=== PATIENT | male | born 1965 | race American Indian/Alaskan Native ===

== ENCOUNTER 2022-07-25 08:03 | Inpatient (IN) | payer MEDICARE ==
[2022-07-25 10:10] LABS: Basophils # (Auto) 0.1 K/mm3 (0.0-0.1); Basophils % (Auto) 0.8 % (0.0-1.8); Eosinophils # (Auto) 0.3 K/mm3 (0.0-0.4); Eosinophils % (Auto) 3.1 % (0.0-4.3); Hematocrit 40.4 % (35.5-45.6); Hemoglobin 13.9 gm/dl (11.8-15.2); Lymphocytes # (Auto) 3.5 K/mm3 (1.2-5.4); Lymphocytes % (Auto) 39.3 % (13.4-35.0); Mean Corpuscular HGB Conc 34 % (32-34); Mean Corpuscular Volume 90 fl (84-94); Monocytes # (Auto) 1.1 K/mm3 (0.0-0.8); Red Cell Distribution Width 15.2 % (13.2-15.2)
--- NOTE | 2022-07-25 10:16 | Cat Scan Report ---
CT head/brain wo con INDICATION / CLINICAL INFORMATION: 57 years Male; numbness. TECHNIQUE: Routine CT head without contrast. All CT scans at this location are performed using CT dos e reduction for ALARA by means of automated exposure control. COMPARISON: None. FINDINGS: BRAIN / INTRACRANIAL CONTENTS: The mild periventricular white matter changes indicative of mild micro vascular angiopathy. Is also mild cerebral atrophy. The ventricular system is correspondingly appropr iate in size and configuration. Findings are compatible with small focus of calcification within the left basal ganglia. There is no CT evidence of acute intracranial hemorrhage or significant mass effe ct. ORBITS: No significant abnormality of visualized orbits. SINUSES / MASTOIDS: There is minimal mucosal thickening within the visualized paranasal sinuses. CRANIOCERVICAL JUNCTION: No significant abnormality. ADDITIONAL FINDINGS: None. IMPRESSION: 1. There is no CT evidence of acute intracranial process. Signer Name: Guy Nix MD Signed: 07/25/2022 10:12 AM Workstation Name: [id number]
[2022-07-25 10:17] LABS: INR 0.82 (0.87-1.13)
[2022-07-25 10:18] LABS: Partial Thromboplastin Time 30.4 Sec. (24.2-36.6); Platelet Count 250 K/mm3 (140-440)
[2022-07-25 10:24] LABS: Alanine Aminotransferase 56 units/L (7-56); Albumin 4.3 g/dL (3.9-5); BUN/Creatinine Ratio 13; Blood Urea Nitrogen 12 mg/dL (9-20); Calcium 9.5 mg/dL (8.4-10.2); Hemolysis Index 85
[2022-07-25] MEDS ORDERED: LORazepam 2 MG/ML VIAL ONE (11:08)
--- NOTE | 2022-07-25 12:26 | Emergency Department Report ---
ED Neuro Deficit HPI - General Chief Complaint: Pain General Stated Complaint: POSSIBLE STROKE ON 07/24, RT SIDE NUMBNESS Time Seen by Provider: 07/25/22 11:15 Source: patient Mode of arrival: Ambulatory Limitations: No Limitations - History of Present Illness Initial Comments: 57 yo M with h/o HTn who now present with right sided facial and both upper and lower limb numbness and tingling that he woke up to yesterday continued until present. 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 No fever or chills. No fall or trauma to the brain reported. He also denies any other modifying or associated factors. - Related Data Home Medications: Previous Rx's Medication Instructions Recorded Last Taken Type Albuterol Mdi (or & Nicu Only) 1 puff IH Q4-6H PRN #1 inha 07/22/13 Unknown Rx [ProAir HFA Inhaler] Hydrocortisone 2.5% [Hytone 2.5% 1 applicatio TP BID #1 tube 07/22/13 Unknown Rx CREAM] Prednisone 3 tab PO QDAY #15 tablet 07/22/13 Unknown Rx Allergies/Adverse Reactions: Allergies Allergy/AdvReac Type Severity Reaction Status Date / Time No Known Allergies Allergy Unverified 07/25/22 09:17 ED Review of Systems ROS: Stated complaint: POSSIBLE STROKE ON 07/24, RT SIDE NUMBNESS Other details as noted in HPI Comment: All other systems reviewed and negative Neurological: numbness (right facial and sided numbness with tingling ), paresthesias. denies: headache, weakness ED Past Medical Hx - Past Medical History Hx Asthma: Yes (ran out of albuterol) - Surgical History Hx Appendectomy: Yes Additional Surgical History: back surgery, R hand surgery, tonsillectomy, appendectomy, circumcision - Social History Smoking Status: Unknown if ever smoked - Medications Home Medications: Home Medications Medication Instructions Recorded Confirmed Last Taken Type Albuterol Mdi (or & Nicu Only) 1 puff IH Q4-6H PRN #1 inha 07/22/13 Unknown Rx [ProAir HFA Inhaler] Hydrocortisone 2.5% [Hytone 2.5% 1 applicatio TP BID #1 tube 07/22/13 Unknown Rx CREAM] Prednisone 3 tab PO QDAY #15 tablet 07/22/13 Unknown Rx ED Neuro Physical Exam - General Limitations: No Limitations General appearance: alert, in no apparent distress Suspected Stroke: Yes - Head Head exam: Present: atraumatic, normal inspection - Eye Eye exam: Present: normal appearance Pupils: Present: normal accommodation - ENT ENT exam: Present: normal exam, normal orophraynx, mucous membranes dry - Neck Neck exam: Present: normal inspection, full ROM. Absent: tenderness - Respiratory Respiratory exam: Present: normal lung sounds bilaterally. Absent: respiratory distress, accessory muscle use - Cardiovascular Cardiovascular Exam: Present: regular rate, normal rhythm, normal heart sounds - GI/Abdominal GI/Abdominal exam: Present: soft, normal bowel sounds. Absent: distended, tenderness - Extremities Exam Extremities exam: Present: normal inspection, normal capillary refill. Absent: tenderness, pedal edema - Back Exam Back exam: Absent: tenderness - Neurological Exam Neurological exam: Present: alert - NIHSS Assessment Interval: Baseline 1a. Level of Consciousness: alert/keenly responsive 1b. LOC Questions: answers both correctly 1c. LOC Commands: performs tasks correctly 2. Best Gaze: normal 3. Visual: no visual loss 4. Facial Palsy: normal symmetrical movement 5b. Motor Arm Right: no drift 5a. Motor Arm Left: no drift 6a. Motor Leg Left: no drift 6b. Motor Leg Right: no drift 7. Limb Ataxia: absent 8. Sensory: normal 9. Best Language: no aphasia 10. Dysarthria: normal 11. Extinction/Inattention: no abnormality Total Score: 0 Stroke Severity: No Stroke Symptoms - Psychiatric Psychiatric exam: Present: normal affect, normal mood - Skin Skin exam: Present: warm, normal color ED Course Vital Signs 07/25/22 07/25/22 09:15 11:36 Temperature 98.4 F Pulse Rate 87 Respiratory 18 Rate Blood Pressure 114/67 [Left] O2 Sat by Pulse 99 99 Oximetry - Consultations Consultation #1: 07/25/22 13:29 Since will do not have neurologist service today I called and consult with Dr Mendez at [facility] who agreed for this patient to have a complete neurology stroke workup-- Dr Darden our hospitalist consulted who accept pt for further evaluation and treatment Consultation #2: 07/25/22 13:31 Dr Darden our hospitalist consulted who accept pt for further evaluation and treatment - Lab Data Result diagrams: 07/25/22 09:36 07/25/22 09:36 Lab Results 09/07/25/22 07/25/22 Range/Units 09:36 09:36 09:36 WBC 8.9 (4.5-11.0) K/mm3 RBC 4.50 (3.65-5.03) M/mm3 Hgb 13.9 (11.8-15.2) gm/dl Hct 40.4 (35.5-45.6) % MCV 90 (84-94) fl MCH 31 (28-32) pg MCHC 34 (32-34) % RDW 15.2 (13.2-15.2) % Plt Count 250 (140-440) K/mm3 Lymph % (Auto) 39.3 H (13.4-35.0) % Nye % (Auto) 12.0 H (0.0-7.3) % Eos % (Auto) 3.1 (0.0-4.3) % Baso % (Auto) 0.8 (0.0-1.8) % Lymph # (Auto) 3.5 (1.2-5.4) K/mm3 Nye # (Auto) 1.1 H (0.0-0.8) K/mm3 Eos # (Auto) 0.3 (0.0-0.4) K/mm3 Baso # (Auto) 0.1 (0.0-0.1) K/mm3 Seg Neutrophils % 44.8 (40.0-70.0) % Seg Neutrophils # 4.0 (1.8-7.7) K/mm3 PT 12.2 (12.2-14.9) Sec. INR 0.82 L (0.87-1.13) APTT 30.4 (24.2-36.6) Sec. Sodium 125 L (137-145) mmol/L Potassium 4.7 (3.6-5.0) mmol/L Chloride 93.2 L (98-107) mmol/L Carbon Dioxide 13 L (22-30) mmol/L Anion Gap 24 mmol/L BUN 12 (9-20) mg/dL Creatinine 0.9 (0.8-1.3) mg/dL Estimated GFR > 60 ml/min BUN/Creatinine Ratio 13 % Glucose 97 (75-100) mg/dL Calcium 9.5 (8.4-10.2) mg/dL Total Bilirubin 0.30 (0.1-1.2) mg/dL AST 62 H (5-40) units/L ALT 56 (7-56) units/L Alkaline Phosphatase 104 (35-129) units/L Troponin T (0.00-0.029) ng/mL Total Protein 6.6 (6.3-8.2) g/dL Albumin 4.3 (3.9-5) g/dL Albumin/Globulin Ratio 1.9 % 07/25/22 Range/Units 09:52 WBC (4.5-11.0) K/mm3 RBC (3.65-5.03) M/mm3 Hgb (11.8-15.2) gm/dl Hct (35.5-45.6) % MCV (84-94) fl MCH (28-32) pg MCHC (32-34) % RDW (13.2-15.2) % Plt Count (140-440) K/mm3 Lymph % (Auto) (13.4-35.0) % Nye % (Auto) (0.0-7.3) % Eos % (Auto) (0.0-4.3) % Baso % (Auto) (0.0-1.8) % Lymph # (Auto) (1.2-5.4) K/mm3 Nye # (Auto) (0.0-0.8) K/mm3 Eos # (Auto) (0.0-0.4) K/mm3 Baso # (Auto) (0.0-0.1) K/mm3 Seg Neutrophils % (40.0-70.0) % Seg Neutrophils # (1.8-7.7) K/mm3 PT (12.2-14.9) Sec. INR (0.87-1.13) APTT (24.2-36.6) Sec. Sodium (137-145) mmol/L Potassium (3.6-5.0) mmol/L Chloride (98-107) mmol/L Carbon Dioxide (22-30) mmol/L Anion Gap mmol/L BUN (9-20) mg/dL Creatinine (0.8-1.3) mg/dL Estimated GFR ml/min BUN/Creatinine Ratio % Glucose (75-100) mg/dL Calcium (8.4-10.2) mg/dL Total Bilirubin (0.1-1.2) mg/dL AST (5-40) units/L ALT (7-56) units/L Alkaline Phosphatase (35-129) units/L Troponin T < 0.010 (0.00-0.029) ng/mL Total Protein (6.3-8.2) g/dL Albumin (3.9-5) g/dL Albumin/Globulin Ratio % - EKG Data -: EKG Interpreted by Ga EKG shows normal: sinus rhythm Rate: normal 07/25/22 12:29 Noted with normal sinus rhythm at a rate of 83 bpm, no ST elevation or depression noted in this normal ECG. - Radiology Data FINDINGS: BRAIN / INTRACRANIAL CONTENTS: The mild periventricular white matter changes indicative of mild microvascular angiopathy. Is also mild cerebral atrophy. The ventricular system is correspondingly appropriate in size and configuration. Findings are compatible with small focus of calcification within the left basal ganglia. There is no CT evidence of acute intracranial hemorrhage or significant mass effect. ORBITS: No significant abnormality of visualized orbits. SINUSES / MASTOIDS: There is minimal mucosal thickening within the visualized paranasal sinuses. CRANIOCERVICAL JUNCTION: No significant abnormality. ADDITIONAL FINDINGS: None. IMPRESSION: 1. There is no CT evidence of acute intracranial process. - Medical Decision Making here with right sided facial and both upper and lower limb numbness and tingling sensation for the last 24 hours-- differential could include TIA, CVA or any systemic or electrolytes abnormality-- will go ahead and order routine CBC, CMP, UA, UDS and CT head with neurology consult-- CT head resulted to be without acute intracranial abnormality -- labs however noted with Na+ 125 mg/dl which could be responsible for the muscle cramps-- no EKG changes noted-- Critical care attestation.: If time is entered above; I have spent that time in minutes in the direct care of this critically ill patient, excluding procedure time. ED Disposition Clinical Impression: Numbness and tingling of right side of face, Right sided numbness, TIA (transient ischemic attack), Hyponatremia Disposition: ADMITTED INPATIENT Is pt being admited?: Yes Does the pt Need Aspirin: No Condition: Stable Referrals: ALEJANDRO ALFORD MD [Primary Care Provider] - 3-5 Days
--- NOTE | 2022-07-25 13:29 | History and Physical Report ---
History of Present Illness Chief complaint: I feel weak, right side History of present illness: 57 YO Male with HTN, Mild Intermittent Asthma presents to ED for evaluation. Patient reports "I feel weak on my right side". Patient states that he was in his usual state of health and awoke from sleep yesterday and was found to have right-sided weakness as well as slurred speech. Patient states his symptoms did not resolve in the ensuing 24 hours. Patient is becoming concerned. Patient transported to [facility] via private vehicle for further care and evaluation of the aforementioned symptoms. The patient was seen and evaluated in the emergency department. All lab and imaging studies reviewed. Patient found to have a focal neurologic deficit and a code stroke was called. Patient admitted to medical floor due to increased risk of worsening symptoms and for medical stabilization. Patient initiated on CVA protocol. Teleneurology consulted. Patient denies fever, chills, chest pain, palpitation, adductive cough, trauma, skin rash, recent contact, unilateral leg swelling, calf pain, individual/family history of DVT/PE/bleeding/blood clotting disorders, known exposure to COVID-19. No prior admission for review. All medication listed at time of admission has been reconciled. Advanced care planning conducted in E. Past History Past Surgical History: appendectomy, tonsillectomy, Other (back surgery, R hand surgery, tonsillectomy, appendectomy, circumcision) Social history: . denies: smoking, alcohol abuse, prescription drug a buse Family history: diabetes, hypertension Medications and Allergies Allergies Allergy/AdvReac Type Severity Reaction Status Date / Time No Known Allergies Allergy Unverified 07/25/22 09:17 Home Medications Medication Instructions Recorded Confirmed Last Taken Type Albuterol Mdi (or & Nicu Only) 1 puff IH Q4-6H PRN #1 inha 07/22/13 Unknown Rx [ProAir HFA Inhaler] Hydrocortisone 2.5% [Hytone 2.5% 1 applicatio TP BID #1 tube 07/22/13 Unknown Rx CREAM] Prednisone 3 tab PO QDAY #15 tablet 07/22/13 Unknown Rx Review of Systems Constitutional: no weight loss, no weight gain, no fever, no chills Ears, nose, mouth and throat: no ear pain, no tinnitis, no decreased hearing, no nose pain, no sinus pressure Cardiovascular: no chest pain, no palpitations, no rapid/irregular heart beat, no edema, no lightheadedness Respiratory: no cough, no cough with sputum, no excessive sputum, no hemoptysis Gastrointestinal: no abdominal pain, no nausea, no diarrhea, no constipation, no hematemesis Genitourinary Male: no hematuria, no flank pain, no discharge, no urinary frequency, no urinary hesitancy Rectal: no pain, no incontinence, no bleeding Musculoskeletal: no neck stiffness, no arm numbness/tingling Integumentary: no rash, no pruritis, no sores, no jaundice, no boils Neurological: weakness, change in speech, gait dysfunction, motor disturbance, no head injury, no numbness, no tingling Psychiatric: no anxiety, no memory loss, no insomnia, no hypersomnia, no change in libido Endocrine: no cold intolerance, no heat intolerance, no polyphagia, no polydipsia, no polyuria, no nocturia Hematologic/Lymphatic: no easy bruising, no easy bleeding, no lymphedema Allergic/Immunologic: no urticaria, no persistent infections, no anaphylaxis Exam - Constitutional Vitals: Temp Pulse Resp BP Pulse Ox 98.4 F 87 18 114/67 99 07/25/22 09:15 07/25/22 09:15 07/25/22 09:15 07/25/22 09:15 07/25/22 11:36 General appearance: Present: mild distress - EENT Eyes: Present: PERRL ENT: hearing intact, clear oral mucosa - Neck Neck: Present: supple, normal ROM - Respiratory Respiratory effort: normal Respiratory: bilateral: CTA - Cardiovascular Heart Sounds: Present: S1 & S2. Absent: rub, click - Extremities Extremities: pulses symmetrical, No edema Peripheral Pulses: within normal limits - Abdominal General gastrointestinal: Present: soft, non-tender, non-distended, normal bowel sounds Male genitourinary: Present: normal - Integumentary Integumentary: Present: clear, warm, dry - Musculoskeletal Musculoskeletal: gait normal, strength equal bilaterally - Psychiatric Psychiatric: appropriate mood/affect, intact judgment & insight - Neurologic Neurologic: CNII-XII intact, moves all extremities HEART Score - HEART Score Troponin: Troponin T < 0.010 ng/mL (0.00-0.029) 07/25/22 09:52 Results - Labs CBC & Chem 7: 07/25/22 09:36 07/25/22 09:36 Labs: Abnormal lab results 07/25/22 07/25/22 07/25/22 Range/Units 09:36 09:36 09:36 Lymph % (Auto) 39.3 H (13.4-35.0) % Eagle % (Auto) 12.0 H (0.0-7.3) % Eagle # (Auto) 1.1 H (0.0-0.8) K/mm3 INR 0.82 L (0.87-1.13) Sodium 125 L (137-145) mmol/L Chloride 93.2 L (98-107) mmol/L Carbon Dioxide 13 L (22-30) mmol/L AST 62 H (5-40) units/L Assessment and Plan - Patient Problems (1) CVA (cerebral vascular accident) Current Visit: Yes Status: Acute Plan to address problem: CVA protocol: CT scan head, neuro check, seizure precautions, physical therapy consulted, Occupational Therapy consulted, speech therapy consulted, lipid panel, statin therapy, antiplatelet therapy, telemetry neurology consulted. Echocardiogram, carotid Doppler. (2) Right hemiparesis Current Visit: Yes Status: Acute Plan to address problem: Physical therapy consulted, supportive care. (3) Metabolic acidosis Current Visit: Yes Status: Acute Plan to address problem: IV fluid resuscitation therapy, BMP, repeat BMP in a.m. (4) DVT prophylaxis Current Visit: Yes Status: Acute (5) Hyponatremia Current Visit: Yes Status: Acute Plan to address problem: BMP, IV fluid resuscitation therapy, repeat BMP in AM. (6) Advance care planning Current Visit: Yes Status: Acute Plan to address problem: Disease education data, care plan discussed, diagnoses discussed, prognosis discussed, patient is full code. Patient acknowledges understanding and agreement with care plan, +30 minutes. (7) Preventative health care Current Visit: Yes Status: Acute Plan to address problem: Patient counseled regarding risk factor reduction, outpatient follow-up with primary care physician for all age and risk factor appropriate screening test. +30 minutes.
--- NOTE | 2022-07-25 13:29 | Electrocardiograph Report ---
[facility] Test Date: 2022-07-25 Test Time: 09:22:11 Pat Name: TANYA DELVALLE Department: Room: Gender: M Office Technician: 0000 : 1965 Requested By: AMBROCIO NINA Order Number: [id number] Reading MD: Brandon Smyth Measurements Intervals Protection Rate: 83 P: 70 SC: 132 QRS: 57 QRSD: 79 T: 24 QT: 346 QTc: 407 Interpretive Statements Sinus rhythm No previous ECG available for comparison Electronically Signed On 07-25-2022 13:29:09 EDT by Brandon Smyth
[2022-07-25] MEDS ORDERED: SODIUM CHLORIDE 0.9% 1000 ML 1,000 ML IV ONE (13:34)
--- NOTE | 2022-07-25 13:57 | Consultation ---
History of Present Illness - Reason for Consult Consult date: 07/25/22 - History of Present Illness [place] [facility] Consult Note # Demographics Consult Type: General Neurology Patient Location: Emergency Room First Name: Kevin Last Name: Yogi Date of : 1965 Age: 57 Gender: Male Facility: Time of Initial Page (Eastern Time): 07/25/2022, 12:26 Time of Return Call (Eastern Time): 07/25/2022, 12:27 # HPI History: 55yo man who had right sided numbness and tingling Last Known Normal: yesterday at 8AM # Assessment Impression: Ischemic Stroke (Acute) # Plan Thrombolytic/Intervention: NOT IV Thrombolysis or IA Intervention candidate Thrombolytic Exclusion: > 4.5 hours Intraarterial Exclusion: clinically consistent with small vessel disease Target Blood Pressure: SBP < 220 Labs: lipid panel Imaging: (urgency: routine): CT Angiogram Head and CT Angiogram Neck MRI Brain without contrast Diagnostic Test: echo without bubble study Therapy/Evaluation: NPO until swallow evaluation PT/OT evaluation speech/swallow consultation Medication: aspirin 81 mg daily DVT Prophylaxis: SCD chemical DVT prophylaxis Other: LDL < 70 If patient has any neurological deterioration please call me back immediately permissive hypertension telemetry monitoring I have discussed my recommendations with the referring provider Disposition: admit # Demographics First Name: Kevin Last Name: Yogi Facility: Medications and Allergies Allergies Allergy/AdvReac Type Severity Reaction Status Date / Time No Known Allergies Allergy Unverified 07/25/22 09:17 Home Medications Medication Instructions Recorded Confirmed Last Taken Type Albuterol Mdi (or & Nicu Only) 1 puff IH Q4-6H PRN #1 inha 07/22/13 Unknown Rx [ProAir HFA Inhaler] Hydrocortisone 2.5% [Hytone 2.5% 1 applicatio TP BID #1 tube 07/22/13 Unknown Rx CREAM] Prednisone 3 tab PO QDAY #15 tablet 07/22/13 Unknown Rx Active Meds: Active Medications Acetaminophen (Acetaminophen 325 Mg Tab) 650 mg PO Q4H PRN PRN Reason: Pain, Mild (1-3) Aspirin (Aspirin 325 Mg Tab) 325 mg PO QDAY BARB Atorvastatin Calcium (Atorvastatin 40 Mg Tab) 40 mg PO QHS BARB Bisacodyl (Bisacodyl 10 Mg Rect Supp) 10 mg NE QDAY PRN PRN Reason: Constipation Hydromorphone HCl (Hydromorphone 0.5 Mg/0.5 Ml Inj) 0.5 mg IV Q23H PRN PRN Reason: Pain , Severe (7-10) Sodium Chloride (Nacl 0.9% 1000 Ml) 1,000 mls @ 999 mls/hr IV BOLUS ONE Stop: 07/25/22 14:34 Potassium Chloride/Sodium Chloride (Ns/Kcl 20meq) 1,000 mls @ 42 mls/hr IV DIRECT BARB Magnesium Hydroxide (Magnesium Hydroxide (Mom) Oral Liqd Udc) 30 ml PO Q4H PRN PRN Reason: Constipation Metoclopramide HCl (Metoclopramide 10 Mg Tab) 10 mg PO Q6H PRN PRN Reason: Nausea And Vomiting Ondansetron HCl (Ondansetron 4 Mg/2 Ml Inj) 4 mg IV Q8H PRN PRN Reason: Nausea And Vomiting Oxycodone/Acetaminophen (Oxycodone /Acetaminophen 5-325mg Tab) 1 tab PO Q16H PRN PRN Reason: Pain, Moderate (4-6) Promethazine HCl (Promethazine 25 Mg Rect Supp) 25 mg NE Q6H PRN PRN Reason: Nausea And Vomiting Sodium Chloride (Sodium Chloride 0.9% 10 Ml Flush Syringe) 10 ml INJ PRN PRN PRN Reason: LINE FLUSH Exam - Constitutional Vitals: Temp Pulse Resp BP Pulse Ox 98.4 F 87 18 114/67 99 07/25/22 09:15 07/25/22 09:15 07/25/22 09:15 07/25/22 09:15 07/25/22 11:36 Results - Labs CBC & Chem 7: 07/25/22 09:36 07/25/22 09:36 Labs: Abnormal lab results 07/25/22 07/25/22 07/25/22 Range/Units 09:36 09:36 09:36 Lymph % (Auto) 39.3 H (13.4-35.0) % Dare % (Auto) 12.0 H (0.0-7.3) % Dare # (Auto) 1.1 H (0.0-0.8) K/mm3 INR 0.82 L (0.87-1.13) Sodium 125 L (137-145) mmol/L Chloride 93.2 L (98-107) mmol/L Carbon Dioxide 13 L (22-30) mmol/L AST 62 H (5-40) units/L
[2022-07-25] MEDS ORDERED: HYDROmorphone 0.5 MG/0.5 ML INJ IV PRN (14:00)
[2022-07-25] MEDS ORDERED: ONDANSETRON 4 MG/2 ML INJ IV PRN (14:00)
[2022-07-25] MEDS ORDERED: METOCLOPRAMIDE 10 MG TAB PO PRN (14:00)
[2022-07-25] MEDS ORDERED: MAGNESIUM HYDROXIDE (MOM) ORAL LIQD UDC PO PRN (14:00)
[2022-07-25] MEDS ORDERED: ACETAMINOPHEN 325 MG TAB PO PRN (14:00)
[2022-07-25] MEDS ORDERED: oxyCODONE /ACETAMINOPHEN 5-325MG TAB PO PRN (14:30)
[2022-07-25] MEDS ORDERED: PROMETHAZINE 25 MG RECT SUPP PR PRN (14:30)
[2022-07-25] MEDS ORDERED: NACL 0.9%/KCL 20 MEQ 20 MEQ/1,000 ML BAG IV SCH (15:00)
--- NOTE | 2022-07-25 16:13 | Vascular Lab Report ---
DUPLEX DOPPLER ULTRASOUND CAROTID, BILATERAL INDICATION / CLINICAL INFORMATION: stroke. COMPARISON: None available. FINDINGS: RIGHT CAROTID: Mild atherosclerotic plaque. - PLAQUE ESTIMATE (%): < 50% - CCA velocity: 85 cm/sec. - ICA peak systolic velocity: 119 cm/sec. - ICA/CCA PSV Ratio: Less than 2. Right Vertebral Artery: Antegrade flow. LEFT CAROTID: Mild atherosclerotic plaque. - PLAQUE ESTIMATE (%): < 50% - CCA velocity: 102 cm/sec. - ICA peak systolic velocity: 96 cm/sec. - ICA/CCA PSV Ratio: Less than 2. Left Vertebral Artery: Antegrade flow. IMPRESSION: 1. Right Internal Carotid Artery: Less than 50% diameter stenosis. 2. Left Internal Carotid Artery: Less than 50% diameter stenosis. Velocity criteria are extrapolated from diameter data as defined by the Society of Radiologists in Ul trasound Consensus Conference, Radiology 2003; 229;340-346. NO STENOSIS (NORMAL) - Plaque = none; ICA PSV < 125 cm/sec; ICA/CCA PSV Ratio < 2.0 <50% STENOSIS - Plaque < 50%; ICA PSV < 125 cm/sec; ICA/CCA PSV Ratio < 2.0 50-69% STENOSIS - Plaque > 50%; ICA PSV = 125-230 cm/sec; ICA/CCA PSV Ratio = 2.0-4.0 >70% BUT <100% STENOSIS - Plaque > 50%; ICA PSV > 230 cm/sec; ICA/CCA PSV Ratio > 4.0 NEAR OCCLUSION - Plaque = visible lumen; ICA PSV = high/low/none; ICA/CCA PSV Ratio = variable TOTAL OCCLUSION - Plaque = no lumen; ICA PSV = none; ICA/CCA PSV Ratio = N/A Scribed by: Dawna Hendrickson RDMS, RVT, RMSKS Scribed: 07/25/2022 2:00 PM I have reviewed the images, agree with this report, and edited this report as needed. Signer Name: Leroy Cervantes MD Signed: 07/25/2022 4:09 PM Workstation Name: [id number]
--- NOTE | 2022-07-26 09:16 | Progress Note ---
Assessment and Plan Assessment and plan: #CVA (cerebral vascular accident) vs TIA rule out #Right hemiparesis -CT head negative for acute findings, carotid Doppler less than 50% stenosis bilaterally, TTE shows diastolic dysfunction and no PFO -CT angio of head and neck and MRI without contrast pending -Lipid panel, A1c pending -Continue statin and aspirin -Teleneurology evaluated patient, report reviewed -PT/OT consulted, recommendations pending #Hypertension -takes lisinopril 20mg qday -will hold due to recommendation of permissive hypertension per Neurology -okay for SBP <200 #Metabolic acidosis #Hyponatremia -repeat BMP pending after fluid resuscitation #Tobacco dependence #Smoking cessation counseling -Patient smokes 1 pack/day; agreeable to nicotine patch -21 mg nicotine patch daily -Smoking cessation counseling, supportive care, behavior change counseling, +15 minutes. #Advanced care planning -Disease education data, care plan discussed, diagnoses discussed, prognosis discussed, patient is full code. Patient acknowledges understanding and agreement with care plan, +30 minutes. History Interval history: No acute events overnight. Patient reports continued numbness in his right upper extremity. He does have history of tobacco abuse and hypertension. We discussed findings of CT of the head and carotid Doppler. Updated on current care plan patient agreeable. Hospitalist Physical - Physical exam Narrative exam: GENERAL: Well-developed well-nourished. In no acute distress. HEENT: Normocephalic. Atraumatic. NECK: Supple. CHEST/LUNGS: CTAB on room air HEART/CARDIOVASCULAR: RRR. No murmur, rubs or gallops appreciated. ABDOMEN: +BS. NT/ND. SKIN: No rashes noted. NEURO: No focal motor deficit. Follows all commands and is ambulatory. R sided numbness in upper and lower extremities. ROM and strength WNL. MUSCULOSKELETAL: No joint effusion EXTREMITIES: No cyanosis, clubbing or edema. PSYCH: Cooperative. - Constitutional Vitals: Temp Pulse Resp BP Pulse Ox 99.0 F 77 18 137/61 96 07/26/22 04:30 07/26/22 04:30 07/26/22 04:30 07/26/22 04:30 07/26/22 09:02 HEART Score - HEART Score Troponin: Troponin T < 0.010 ng/mL (0.00-0.029) 07/25/22 09:52 Results - Labs CBC & Chem 7: 07/25/22 09:36 07/25/22 09:36 Labs: Laboratory Last Values WBC 8.9 K/mm3 (4.5-11.0) 07/25/22 09:36 RBC 4.50 M/mm3 (3.65-5.03) 07/25/22 09:36 Hgb 13.9 gm/dl (11.8-15.2) 07/25/22 09:36 Hct 40.4 % (35.5-45.6) 07/25/22 09:36 MCV 90 fl (84-94) 07/25/22 09:36 MCH 31 pg (28-32) 07/25/22 09:36 MCHC 34 % (32-34) 07/25/22 09:36 RDW 15.2 % (13.2-15.2) 07/25/22 09:36 Plt Count 250 K/mm3 (140-440) 07/25/22 09:36 Lymph % (Auto) 39.3 % (13.4-35.0) H 07/25/22 09:36 [place] % (Auto) 12.0 % (0.0-7.3) H 07/25/22 09:36 Eos % (Auto) 3.1 % (0.0-4.3) 07/25/22 09:36 Baso % (Auto) 0.8 % (0.0-1.8) 07/25/22 09:36 Lymph # (Auto) 3.5 K/mm3 (1.2-5.4) 07/25/22 09:36 [place] # (Auto) 1.1 K/mm3 (0.0-0.8) H 07/25/22 09:36 Eos # (Auto) 0.3 K/mm3 (0.0-0.4) 07/25/22 09:36 Baso # (Auto) 0.1 K/mm3 (0.0-0.1) 07/25/22 09:36 Seg Neutrophils % 44.8 % (40.0-70.0) 07/25/22 09:36 Seg Neutrophils # 4.0 K/mm3 (1.8-7.7) 07/25/22 09:36 PT 12.2 Sec. (12.2-14.9) 07/25/22 09:36 INR 0.82 (0.87-1.13) L 07/25/22 09:36 APTT 30.4 Sec. (24.2-36.6) 07/25/22 09:36 Sodium 125 mmol/L (137-145) L 07/25/22 09:36 Potassium 4.7 mmol/L (3.6-5.0) 07/25/22 09:36 Chloride 93.2 mmol/L (98-107) L 07/25/22 09:36 Carbon Dioxide 13 mmol/L (22-30) L 07/25/22 09:36 Anion Gap 24 mmol/L 07/25/22 09:36 BUN 12 mg/dL (9-20) 07/25/22 09:36 Creatinine 0.9 mg/dL (0.8-1.3) 07/25/22 09:36 Estimated GFR > 60 ml/min 07/25/22 09:36 BUN/Creatinine Ratio 13 % 07/25/22 09:36 Glucose 97 mg/dL (75-100) 07/25/22 09:36 Calcium 9.5 mg/dL (8.4-10.2) 07/25/22 09:36 Total Bilirubin 0.30 mg/dL (0.1-1.2) 07/25/22 09:36 AST 62 units/L (5-40) H 07/25/22 09:36 ALT 56 units/L (7-56) 07/25/22 09:36 Alkaline Phosphatase 104 units/L (35-129) 07/25/22 09:36 Troponin T < 0.010 ng/mL (0.00-0.029) 07/25/22 09:52 Total Protein 6.6 g/dL (6.3-8.2) 07/25/22 09:36 Albumin 4.3 g/dL (3.9-5) 07/25/22 09:36 Albumin/Globulin Ratio 1.9 % 07/25/22 09:36 Leger/IV: Voiding Method Toilet Active Medications - Current Medications Current Medications: Generic Name Dose Route Start Last Admin Trade Name Freq PRN Reason Stop Dose Admin Acetaminophen 650 mg 07/25/22 14:00 Acetaminophen 325 Mg Tab PO Q4H PRN Pain, Mild (1-3) Aspirin 325 mg 07/26/22 10:00 Aspirin 325 Mg Tab PO QDAY BARB Atorvastatin Calcium 40 mg 07/25/22 22:00 07/25/22 22:16 Atorvastatin 40 Mg Tab PO 40 mg QHS BARB Administration Bisacodyl 10 mg 07/25/22 14:00 Bisacodyl 10 Mg Rect Supp [place] QDAY PRN Constipation Hydromorphone HCl 0.5 mg 07/25/22 14:00 Hydromorphone 0.5 Mg/0.5 Ml Inj IV Q23H PRN Pain , Severe (7-10) Potassium Chloride/Sodium Chloride 20 meq in 1,000 mls @ 42 mls/hr 07/25/22 15:00 07/26/22 06:08 Ns/Kcl 20meq IV 42 mls/hr DIRECT BARB Administration Magnesium Hydroxide 30 ml 07/25/22 14:00 Magnesium Hydroxide (Mom) Oral Liqd Udc PO Q4H PRN Constipation Metoclopramide HCl 10 mg 07/25/22 14:00 Metoclopramide 10 Mg Tab PO Q6H PRN Nausea And Vomiting Ondansetron HCl 4 mg 07/25/22 14:00 Ondansetron 4 Mg/2 Ml Inj IV Q8H PRN Nausea And Vomiting Oxycodone/Acetaminophen 1 tab 07/25/22 14:30 Oxycodone /Acetaminophen 5-325mg Tab PO Q16H PRN Pain, Moderate (4-6) Promethazine HCl 25 mg 07/25/22 14:30 Promethazine 25 Mg Rect Supp [place] Q6H PRN Nausea And Vomiting Sodium Chloride 10 ml 07/25/22 14:30 Sodium Chloride 0.9% 10 Ml Flush Syringe IV PRN PRN LINE FLUSH
[2022-07-26] MEDS: ASPIRIN 325 MG TAB PO SCH (11:52)
[2022-07-26 12:26] LABS: Chol/HDL Ratio 2.23 %
[2022-07-26] MEDS: NICOTINE 21 MG/24 HR PATCH TD SCH (13:51)
[2022-07-27 07:54] LABS: Blood Urea Nitrogen 14 mg/dL (9-20); Calcium 10.2 mg/dL (8.4-10.2); Hemolysis Index 16
[2022-07-27 08:00] LABS: BUN/Creatinine Ratio 20
--- NOTE | 2022-07-27 09:14 | Progress Note ---
Assessment and Plan Assessment and plan: #CVA (cerebral vascular accident) vs TIA rule out #Right hemiparesis-improving -CT head negative for acute findings, carotid Doppler less than 50% stenosis bilaterally, TTE shows diastolic dysfunction and no PFO -CT angio of head and neck shows atherosclerosis. MRI without contrast pending -Lipid panel WNL, A1c pending -Continue statin and aspirin -Teleneurology evaluated patient, report reviewed -PT/OT consulted, recommendations pending #Hypertension -takes lisinopril 20mg qday -will hold due to recommendation of permissive hypertension per Neurology -okay for SBP <200 #Metabolic acidosis-resolved #Hyponatremia-resolved #Tobacco dependence #Smoking cessation counseling -Patient smokes 1 pack/day; agreeable to nicotine patch -continue 21 mg nicotine patch daily; will prescribe chantix at discharge -Smoking cessation counseling, supportive care, behavior change counseling, +15 minutes. #Advanced care planning -Disease education data, care plan discussed, diagnoses discussed, prognosis discussed, patient is full code. Patient acknowledges understanding and agreement with care plan, +30 minutes. History Interval history: No acute events overnight. Patient reports improvement of R lower facial numbness. He continues to have numbness in the upper and lower extremities of the same side. He is motivated to quit smoking after discharge. MRI pending and patient agreeable to treatment plan. Hospitalist Physical - Physical exam Narrative exam: GENERAL: Well-developed well-nourished. In no acute distress. HEENT: Normocephalic. Atraumatic. NECK: Supple. CHEST/LUNGS: CTAB on room air HEART/CARDIOVASCULAR: RRR. No murmur, rubs or gallops appreciated. ABDOMEN: +BS. NT/ND. SKIN: No rashes noted. NEURO: No focal motor deficit. Follows all commands and is ambulatory. R sided numbness in upper and lower extremities. ROM and strength WNL. MUSCULOSKELETAL: No joint effusion EXTREMITIES: No cyanosis, clubbing or edema. PSYCH: Cooperative. - Constitutional Vitals: Temp Pulse Resp BP Pulse Ox 98.9 F 67 16 140/58 97 07/27/22 03:34 07/27/22 03:34 07/27/22 03:34 07/27/22 03:34 07/27/22 03:34 General appearance: Present: mild distress HEART Score - HEART Score Troponin: Troponin T < 0.010 ng/mL (0.00-0.029) 07/25/22 09:52 Results - Labs CBC & Chem 7: 07/25/22 09:36 07/27/22 05:41 Labs: Laboratory Last Values WBC 8.9 K/mm3 (4.5-11.0) 07/25/22 09:36 RBC 4.50 M/mm3 (3.65-5.03) 07/25/22 09:36 Hgb 13.9 gm/dl (11.8-15.2) 07/25/22 09:36 Hct 40.4 % (35.5-45.6) 07/25/22 09:36 MCV 90 fl (84-94) 07/25/22 09:36 MCH 31 pg (28-32) 07/25/22 09:36 MCHC 34 % (32-34) 07/25/22 09:36 RDW 15.2 % (13.2-15.2) 07/25/22 09:36 Plt Count 250 K/mm3 (140-440) 07/25/22 09:36 Lymph % (Auto) 39.3 % (13.4-35.0) H 07/25/22 09:36 [place] % (Auto) 12.0 % (0.0-7.3) H 07/25/22 09:36 Eos % (Auto) 3.1 % (0.0-4.3) 07/25/22 09:36 Baso % (Auto) 0.8 % (0.0-1.8) 07/25/22 09:36 Lymph # (Auto) 3.5 K/mm3 (1.2-5.4) 07/25/22 09:36 [place] # (Auto) 1.1 K/mm3 (0.0-0.8) H 07/25/22 09:36 Eos # (Auto) 0.3 K/mm3 (0.0-0.4) 07/25/22 09:36 Baso # (Auto) 0.1 K/mm3 (0.0-0.1) 07/25/22 09:36 Seg Neutrophils % 44.8 % (40.0-70.0) 07/25/22 09:36 Seg Neutrophils # 4.0 K/mm3 (1.8-7.7) 07/25/22 09:36 PT 12.2 Sec. (12.2-14.9) 07/25/22 09:36 INR 0.82 (0.87-1.13) L 07/25/22 09:36 APTT 30.4 Sec. (24.2-36.6) 07/25/22 09:36 Sodium 137 mmol/L (137-145) D 07/27/22 05:41 Potassium 4.8 mmol/L (3.6-5.0) 07/27/22 05:41 Chloride 100.2 mmol/L (98-107) 07/27/22 05:41 Carbon Dioxide 26 mmol/L (22-30) D 07/27/22 05:41 Anion Gap 16 mmol/L 07/27/22 05:41 BUN 14 mg/dL (9-20) 07/27/22 05:41 Creatinine 0.7 mg/dL (0.8-1.3) L 07/27/22 05:41 Estimated GFR > 60 ml/min 07/27/22 05:41 BUN/Creatinine Ratio 20 % 07/27/22 05:41 Glucose 119 mg/dL (75-100) H 07/27/22 05:41 Hemoglobin A1c 5.6 % (4-6) 07/26/22 11:46 Calcium 10.2 mg/dL (8.4-10.2) 07/27/22 05:41 Magnesium 1.90 mg/dL (1.7-2.3) 07/27/22 05:41 Total Bilirubin 0.30 mg/dL (0.1-1.2) 07/25/22 09:36 AST 62 units/L (5-40) H 07/25/22 09:36 ALT 56 units/L (7-56) 07/25/22 09:36 Alkaline Phosphatase 104 units/L (35-129) 07/25/22 09:36 Troponin T < 0.010 ng/mL (0.00-0.029) 07/25/22 09:52 Total Protein 6.6 g/dL (6.3-8.2) 07/25/22 09:36 Albumin 4.3 g/dL (3.9-5) 07/25/22 09:36 Albumin/Globulin Ratio 1.9 % 07/25/22 09:36 Triglycerides 105 mg/dL (2-149) 07/26/22 11:46 Cholesterol 143 mg/dL (50-199) 07/26/22 11:46 LDL Cholesterol Direct 70 mg/dL (50-130) 07/26/22 11:46 HDL Cholesterol 64 mg/dL (40-59) H 07/26/22 11:46 Cholesterol/HDL Ratio 2.23 % 07/26/22 11:46 TSH 0.459 mlU/mL (0.270-4.200) 07/26/22 11:46 Leger/IV: Voiding Method Urinal Active Medications - Current Medications Current Medications: Generic Name Dose Route Start Last Admin Trade Name Freq PRN Reason Stop Dose Admin Acetaminophen 650 mg 07/25/22 14:00 Acetaminophen 325 Mg Tab PO Q4H PRN Pain, Mild (1-3) Aspirin 325 mg 07/26/22 10:00 07/26/22 11:52 Aspirin 325 Mg Tab PO 325 mg QDAY BARB Administration Atorvastatin Calcium 40 mg 07/25/22 22:00 07/26/22 21:42 Atorvastatin 40 Mg Tab PO 40 mg QHS BARB Administration Bisacodyl 10 mg 07/25/22 14:00 Bisacodyl 10 Mg Rect Supp [place] QDAY PRN Constipation Hydromorphone HCl 0.5 mg 07/25/22 14:00 Hydromorphone 0.5 Mg/0.5 Ml Inj IV Q23H PRN Pain , Severe (7-10) Magnesium Hydroxide 30 ml 07/25/22 14:00 Magnesium Hydroxide (Mom) Oral Liqd Udc PO Q4H PRN Constipation Metoclopramide HCl 10 mg 07/25/22 14:00 Metoclopramide 10 Mg Tab PO Q6H PRN Nausea And Vomiting Nicotine 21 mg 07/26/22 13:00 07/26/22 13:51 Nicotine 21 Mg/24 Hr Patch TD 21 mg QDAY BARB Administration Ondansetron HCl 4 mg 07/25/22 14:00 Ondansetron 4 Mg/2 Ml Inj IV Q8H PRN Nausea And Vomiting Oxycodone/Acetaminophen 1 tab 07/25/22 14:30 Oxycodone /Acetaminophen 5-325mg Tab PO Q16H PRN Pain, Moderate (4-6) Promethazine HCl 25 mg 07/25/22 14:30 Promethazine 25 Mg Rect Supp [place] Q6H PRN Nausea And Vomiting Sodium Chloride 10 ml 07/25/22 14:30 Sodium Chloride 0.9% 10 Ml Flush Syringe IV PRN PRN LINE FLUSH
--- NOTE | 2022-07-27 10:14 | Cat Scan Report ---
CT angio head, CT angio neck HISTORY: stroke rule out (FROM YESTERDAY) OMNIPAQUE 350 100ML IN HOUSE PT COMPARISON: None. TECHNIQUE: CTA of the neck and head is performed after IV contrast. 3-D/MIP reformats were postproces sed. Percentage stenosis is determined by direct quantitative measurements of diseased internal [place] artery diameter compared with normal distal internal carotid artery reference segments or by crit eria similar to NASCET where applicable. All CT scans at this location are performed using CT dose re duction for ALARA by means of automated exposure control. FINDINGS: CTA NECK: Aortic arch: No significant abnormality. Cervical vertebral arteries: The proximal V1 segment of the right vertebral artery is occluded. There is reconstitution in the remainder of the right vertebral artery is diminutive. Left vertebral arter y is dominant. There is possible mild narrowing of the origin of the left vertebral artery. Otherwise there is no stenosis or occlusion left vertebral artery. Common Carotid arteries: No occlusion or he modynamically significant stenosis. Internal carotid arteries: Noncalcified atherosclerosis results in approximately 50% narrowing of the origin the right internal carotid artery. Mild atherosclerosis without occlusion or hemodynamically significant stenosis of the left internal carotid artery. CTA HEAD: Intracranial internal carotid arteries: No occlusion or significant stenosis. Anterior cerebral arteries: No occlusion or significant stenosis. Middle cerebral arteries: No occlusion or significant stenosis. Intracranial vertebral arteries: No occlusion or significant stenosis. Basilar artery: No occlusion or significant stenosis. Posterior cerebral arteries: No occlusion or significant stenosis. No aneurysm. Additional findings: None. IMPRESSION: 1. CTA NECK: There is short segment occlusion of the proximal right vertebral artery with distal jad nstitution. There is mild narrowing of the origin of the left vertebral artery. There is approximatel y 50% stenosis of the right ICA origin. 2. CTA HEAD: No proximal large vessel occlusion. Signer Name: Chad Castillo MD Signed: 07/27/2022 10:09 AM Workstation Name: [id number]
[2022-07-27] MEDS: ASPIRIN 325 MG TAB PO SCH (12:32)
[2022-07-27] MEDS: NICOTINE 21 MG/24 HR PATCH TD SCH (14:32)
[2022-07-28 06:17] VITALS: BP 118/62
[2022-07-28] MEDS: ASPIRIN 325 MG TAB PO SCH ×2 (08:53→11:22)
[2022-07-28] MEDS: NICOTINE 21 MG/24 HR PATCH TD SCH ×2 (08:53→11:22)
--- NOTE | 2022-07-28 12:33 | Magnetic Resonance Report ---
MRI BRAIN 07/27/2022 INDICATION / CLINICAL INFORMATION: Numbness. TECHNIQUE: Multiplanar, multisequence MR images of the brain were obtained. COMPARISON: None available. FINDINGS: BRAIN / INTRACRANIAL CONTENTS: Unenhanced MR images of the brain were obtained. There is a 6 mm focal area of restricted diffusion located in the left thalamus, consistent with an a cute thalamic lacunar infarct. No other areas of acute ischemic injury are noted. Ventricles and sulci are normal in size and shape for a patient of this age. There is no evidence of hemorrhage or mass. There are no abnormal extra-axial fluid collections. EXTRACRANIAL: Unremarkable CRANIOCERVICAL JUNCTION: No significant abnormality. VASCULAR FLOW-VOIDS: No significant abnormality. IMPRESSION: Acute left thalamic lacunar infarct. No evidence of hemorrhage Signer Name: Lonnie Aponte MD Signed: 07/28/2022 12:29 PM Workstation Name: [id number]
[2022-07-28] MEDS ORDERED: amLODIPine 10 MG TAB PO SCH (14:00)
--- NOTE | 2022-07-28 14:02 | Discharge Summary ---
Providers - Providers Date of Admission: 07/25/22 13:31 Date of discharge: 07/28/22 Attending physician: LIZZY MILAN MD 07/25/22 13:31 Occupational Therapy Evaluate and Treat [CONS] Routine Comment: Reason For Exam: Neuro deficits Physical Therapy Evaluation and Treat [CONS] Routine Comment: Reason For Exam: Neuro deficits 07/25/22 13:33 Speech Therapy Evaluation and Treat [CONS] Routine Reason For Exam: swallow eval Primary care physician: ALEJANDRO ALFORD Hospitalization Reason for admission: R sided numbness Condition: Stable Hospital course: Patient is a 57-year-old male with history of hypertension and tobacco abuse presented to the emergency department with complaints of right-sided numbness. He was admitted for CVA rule out. Initial CT of the head was negative. Carotid Doppler showed less than 50% stenosis bilaterally. Echocardiogram showed LVEF of 60 to 65% with mild diastolic dysfunction without PFO. CT angiogram of the head and neck showed proximal right vertebral artery occlusion. MRI was significant for acute left thalamic lacunar infarct. Once stable, patient was discharged home. Disposition: 01 HOME / SELF CARE / HOMELESS Final Discharge Diagnosis (Prints w/discharge instructions): Acute left thalamic lacunar infarct with right hemiparesis. Hypertension. Metabolic acidosis. Hyponatremia. Tobacco dependence Time spent for discharge: 40 minutes Core Measure Documentation - Palliative Care Palliative Care/ Comfort Measures: Not Applicable - Core Measures Any of the following diagnoses?: stroke - Stroke Discharge Requirements Statin for LDL = or >70 mg/dl on DC: Yes Anticoag for atrial fib/atrial flutter: Not Applicable Antithrombotic for ischemic stroke: Yes Exam - Physical Exam Narrative exam: GENERAL: Well-developed well-nourished. In no acute distress. HEENT: Normocephalic. Atraumatic. NECK: Supple. CHEST/LUNGS: CTAB on room air HEART/CARDIOVASCULAR: RRR. No murmur, rubs or gallops appreciated. ABDOMEN: +BS. NT/ND. SKIN: No rashes noted. NEURO: No focal motor deficit. Follows all commands and is ambulatory. R sided numbness in upper and lower extremities. ROM and strength WNL. MUSCULOSKELETAL: No joint effusion EXTREMITIES: No cyanosis, clubbing or edema. PSYCH: Cooperative. - Constitutional Vitals: Temp Pulse Resp BP Pulse Ox 98.8 F 79 20 118/62 97 07/28/22 05:18 07/28/22 05:18 07/28/22 05:18 07/28/22 05:07/28/22 08:16 Plan Care Plan Goals: Please take all medications as prescribed. The MRI did confirm that you had a stroke. It is important that you quit smoking and monitor your blood pressure as we discussed to prevent future strokes. Please take chantix as it is prescribed to help you quit smoking. Follow up with: ALEJANDRO ALFORD MD [Primary Care Provider] - 3-5 Days Prescriptions: AtorvaSTATin [Lipitor] 40 mg PO QHS 30 Days #30 tablet amLODIPine 10 mg PO QDAY 30 Days #30 tablet Aspirin 325 mg PO QDAY 30 Days #30 tablet Varenicline Tartrate [Chantix] 1 each PO QDAY 30 Days #1 each
== END 2022-07-28 15:17 | disposition home or self-care (01) | DRG 65 ==
LOC: ED 08:03 → 3A 13:31
PROVIDERS: ADMIT Internal Medicine; ATTEND Student in an Organized Health Care Education/Training Program
DX: I63.81 Other cerebral infarction due to occlusion or stenosis of small artery (principal); E87.1 Hypo-osmolality and hyponatremia; G81.91 Hemiplegia, unspecified affecting right dominant side; E87.2 Acidosis; I10 Essential (primary) hypertension; Z71.6 Tobacco abuse counseling; Z83.3 Family history of diabetes mellitus; Z82.49 Family history of ischemic heart disease and other diseases of the circulatory system
CPT/HCPCS: 36415; 70450; 70496; 70498; 70551; 80048; 80053; 80061; 83036; 83735; 84443; 84484; 85025; 85610; 85730; 93005; 93306; 93880; 99285; 99406; G0378; J3480; C8929; J2060; J7030; Q9967